=== PATIENT | female | born 1930 | race Two or more races ===

== ENCOUNTER 2020-02-06 15:09 | Emergency (ER) | payer OTHER ==
[~2020-02-06] VITALS: Ht 167.6 cm; Wt 79.4 kg
--- NOTE | 2020-02-06 15:26 | NUR ---
PT DENEIS ANY PAIN OR DISTRESS, PT DOES NOT WHY SHE IS HERE. ABLE TO SWALLOW SALIVA, NO DROOLING AT THIS POINT. PT ONLY ORIENTED TO NAME.
[2020-02-06] MEDS ORDERED: ALBU18HF2 INH (15:34)
[2020-02-06] MEDS ORDERED: CHOL100045 PO (15:34)
[2020-02-06] MEDS ORDERED: BENZ200C53 PO (15:34)
[2020-02-06] MEDS ORDERED: SENN-261 PO (15:34)
[2020-02-06] MEDS ORDERED: POLY17PO4 PO (15:34)
[2020-02-06] MEDS ORDERED: ATOR20TA PO (15:34)
[2020-02-06] MEDS ORDERED: CICL6.1H2 IH (15:34)
[2020-02-06] MEDS ORDERED: ALEN70TA6 PO (15:34)
[2020-02-06] MEDS ORDERED: ALBU2.5V13 NEB (15:34)
[2020-02-06] MEDS ORDERED: FEXO-65 PO (15:34)
[2020-02-06] MEDS ORDERED: CALC-168 PO (15:34)
[2020-02-06] MEDS ORDERED: DOCU100C36 PO (15:34)
[2020-02-06] MEDS ORDERED: METO25TA6 PO (15:34)
--- NOTE | 2020-02-06 15:54 | NUR ---
CALLED [facility] TO TAKE THE PT BACK HOME. ETA [phone].
--- NOTE | 2020-02-06 18:00 | NUR ---
[facility] at bedside to take the pt home.
--- NOTE | 2020-02-06 18:10 | NUR ---
pt getting restless, wants to go back home to "play bingo with house mates before its late". keep orienting the pt about the process of ambulance timing.
--- NOTE | 2020-02-06 18:22 | NUR ---
per ambulance crew, sandro cash accepting rn concerned about the pt vss. rechecked the vss multiple sign, notified. oked the d/c. called sandro hinson report to ana, the nurse taking care of the pt.
[2020-02-06 18:26] VITALS: BP 144/79
== END 2020-02-06 18:22 ==
LOC: ER 15:09
DX: Z00.00 Encounter for general adult medical examination without abnormal findings (principal); F03.90 Unspecified dementia, unspecified severity, without behavioral disturbance, psychotic disturbance, mood disturbance, and anxiety; J44.9 Chronic obstructive pulmonary disease, unspecified; E78.5 Hyperlipidemia, unspecified; K59.00 Constipation, unspecified; Z79.899 Other long term (current) drug therapy
CPT/HCPCS: 93005; A4663